=== PATIENT | female | born 1975 | race Caucasian/White ===

== ENCOUNTER 2016-07-30 11:10 | Emergency (ER) | payer OTHER ==
[~2016-07-30] VITALS: Ht 160 cm; Wt 54.4 kg
--- NOTE | 2016-07-30 11:19 | ED GI/GU/ABDOMINAL COMPLAINT ---
History of Present Illness General Chief Complaint: General Adult Stated Complaint: "PER PT FOOD POSIONING" Source: patient, family Exam Limitations: no limitations Vital Signs & Intake/Output Vital Signs & Intake/Output Vital Signs Date Time Temp Pulse Resp B/P B/P Pulse O2 O2 Flow FiO2 Mean Ox Delivery Rate 07/30 1300 97.3 88 18 128/74 94 Room Air 07/30 1136 98 Room Air 07/30 1113 97.5 92 16 95 Room Air Allergies Coded Allergies: No Known Allergies (07/30/16) Reconcile Medications Ondansetron (Zofran Odt) 4 MG TAB.RAPDIS 1 TAB SL TID NAUSEA Triage Note: 40 Y/O FEMALE C/O HEADACHE, N/V AND PHOTOPHOBIA X 2-3 HOURS. HAS NOT TAKEN ANY MEDS FOR SAME DUE TO VOMITING. Triage Nurses Notes Reviewed? yes ? N Is pt currently ? No Onset: Abrupt Duration: hour(s): (3) Timing: multiple episodes today Location: FRONTAL HEAD Radiation: OCCIPUT No Modifying Factors: none Associated Symptoms: nausea/vomiting HPI: This is a 4-year-old female who presents to the ER with chief complaint of sudden onset of headache 3 years ago. She states that she came home from work and was upset about something that happened at work. Then she began to have a headache. Pain is in the front of the head and radiates to the back. After that she started with nausea and vomiting multiple times. Emesis was bilious according to the significant other in the room. She denies any abdominal pain. No history of headaches or migraines in the past before denies any trauma. Denies any blurred vision. Past History Travel History Traveled to [place] past 21 day No Medical History Any Pertinent Medical History? see below for history Neurological: NONE EENT: NONE Cardiovascular: NONE Respiratory: NONE Gastrointestinal: NONE Hepatic: NONE Renal: NONE Musculoskeletal: NONE Psychiatric: NONE Endocrine: NONE Blood Disorders: NONE Cancer(s): NONE BULKER/Reproductive: NONE Surgical History Surgical History: non-contributory Psychosocial History What is your primary language Montenegrin Tobacco Use: Current Not Daily Family History Comment: NO FAMILY HISTORY OF MIGRAINE, CVA, ANEURYSMS Hx Contributory? No Review of Systems Review of Systems Constitutional: Denies: chills, fever. EENTM: Denies: double vision. Respiratory: Denies: cough, short of breath, sputum production. Cardiovascular: Denies: chest pain. GI: Reports: nausea, vomiting. Denies: abdominal pain, diarrhea. Genitourinary: Denies: discharge, dysuria. Musculoskeletal: Denies: back pain. Skin: Reports: no symptoms. Neurological/Psychological: Reports: anxiety, emotional problems, headache. Denies: confusion. Hematologic/Endocrine: Denies: bruising, bleeding, polyuria, polydipsia. Immunologic/Allergic: Denies: splenectomy. All Other Systems: Reviewed and Negative Physical Exam Physical Exam General Appearance: alert, awake, anxious, mild distress, moderate distress, thin Head: atraumatic, normal appearance Eyes: Bilateral: normal appearance, PERRL, EOMI. Ears, Nose, Throat, Mouth: hearing grossly normal, moist mucous membrane Neck: normal inspection, supple, full range of motion Respiratory: normal breath sounds, chest non-tender, no respiratory distress Cardiovascular: regular rate/rhythm Peripheral Pulses: 2+ radial (R), 2+ radial (L) Gastrointestinal: normal bowel sounds, soft, non-tender Back: normal inspection, normal range of motion Extremities: normal range of motion Neurologic/Psych: no motor/sensory deficits, awake, alert, oriented x 3 Core Measures ACS in differential dx? No Severe Sepsis Present: No Septic Shock Present: No Progress Differential Diagnosis: MIGRAINE, SUBARACHNOID BLEED, ANXIETY ATTACK Plan of Care: Orders Procedure Date/time Status Add-on Test (ER Only) 07/30 1225 Active LIPASE 07/30 1142 Complete URINE DRUGS OF ABUSE 07/30 1128 Active PARTIAL THROMBOPLASTIN TIME 07/30 1128 Complete PROTHROMBIN TIME 07/30 1128 Complete COMPREHENSIVE METABOLIC PANEL 07/30 1128 Complete CBC WITHOUT DIFFERENTIAL 07/30 1128 Complete Laboratory Tests 07/30/16 1142: Anion Gap 16, Estimated GFR > 60, BUN/Creatinine Ratio 46.0 H, Glucose 124 H, Calcium 10.1, Total Bilirubin 0.7, AST 39 H, ALT 73 H, Alkaline Phosphatase 93 , Total Protein 8.7 H, Albumin 5.4 H, Globulin 3.3, Albumin/Globulin Ratio 1.6 , Lipase 84, PT 13.0 H, INR 1.24 H, APTT 28, CBC w Diff NO MAN DIFF REQ, RBC 4.32, MCV 93.8, MCH 31.7 H, RDW 12.1, MPV 8.2, Gran % 86.6 H, Lymphocytes % 9.2 L, Monocytes % 3.6, Eosinophils % 0.2, Basophils % 0.4, Absolute Granulocytes 12.1 H, Absolute Lymphocytes 1.3, Absolute Monocytes 0.5, Absolute Eosinophils 0, Absolute Basophils 0, PUBS MCHC 33.8 ZOFRAN, IV TYLENOL, CT HEAD. NO IMPROVEMENT, MORPHINE ORDERED. CT RESULTS PENDING. 07/30/2016 12:04:[address] scan is negative. Patient states the pain is relieved but she still complains of nausea. I discussed this possibility of subarachnoid hemorrhage at this time she is refusing lumbar puncture. She states she thinks the headache is a reaction from being very upset at work this morning. 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 14:45 PATIENT NOW TOTALLY ASYMPTOMATIC. TOLERATING PO WITHOUT DIFFICULTY. WISHES TO GO HOME AT THIS TIME. WILL FOLLOW UP WITH PCP IN OFFICE. (AMANDA ALMENDAREZ,ANTONINO) Diagnostic Imaging: Viewed by Me: CT Scan. Discussed w/RAD: CT Scan. Radiology Impression: PATIENT: SHAHID BARRAZA PRESENT AGE: 40 PATIENT ACCOUNT NO: [id number] : 75 LOCATION: [facility] ORDERING PHYSICIAN: ANTONINO PATEL MD SERVICE DATE: 07/30/16 EXAM TYPE: CAT - CT HEAD WO IV CONTRAST EXAMINATION: CT HEAD WITHOUT CONTRAST CLINICAL INFORMATION: Sudden onset headache and vomiting. COMPARISON: None TECHNIQUE: Contiguous axial imaging was performed from the skull base to vertex without intravenous administration of contrast. DLP: 621 mGy-cm FINDINGS: There is no evidence of acute intracranial hemorrhage or territorial infarction. No abnormal mass effect or midline shift is seen. Armstrong to white matter differentiation is well preserved. No extra-axial fluid collections are identified. The ventricles are normal in size. There is no abnormal attenuation within the brain parenchyma. The osseous structures and soft tissues are normal. The mastoid air cells and visualized portions of the paranasal sinuses are well aerated. IMPRESSION: No acute intracranial pathology. DICTATED BY: ITALIA BEARDEN MD DATE/TIME DICTATED:07/30/161141 TANK WORKER:SANA DATE/TIME TRANSCRIBED:1141 CONFIDENTIAL, DO NOT COPY WITHOUT APPROPRIATE AUTHORIZATION. < Electronically signed in Other Vendor System> SIGNED BY: ITALIA BEARDEN MD 07/30/16 1149 Initial ED EKG: none Departure Departure Time of Disposition: 1445 Disposition: HOME OR SELF CARE Condition: Stable Clinical Impression Primary Impression: Headache Referrals: STACIA PATINO MD Additional Instructions: TAKE ORAL ZOFRAN NEEDED FOR NAUSEA MOTRIN OR TYLENOL NEEDED FOR PAIN Departure Forms: Customer Survey General Discharge Information Prescriptions: Current Visit Scripts Ondansetron (Zofran Odt) 1 TAB SL TID #10 TAB
--- NOTE | 2016-07-30 11:49 | CT SCAN REPORT ---
EXAMINATION: CT HEAD WITHOUT CONTRAST CLINICAL INFORMATION: Sudden onset headache and vomiting. COMPARISON: None TECHNIQUE: Contiguous axial imaging was performed from the skull base to vertex without intravenous administration of contrast. DLP: 621 mGy-cm FINDINGS: There is no evidence of acute intracranial hemorrhage or territorial infarction. No abnormal mass effect or midline shift is seen. Armstrong to white matter differentiation is well preserved. No extra-axial fluid collections are identified. The ventricles are normal in size. There is no abnormal attenuation within the brain parenchyma. The osseous structures and soft tissues are normal. The mastoid air cells and visualized portions of the paranasal sinuses are well aerated. IMPRESSION: No acute intracranial pathology.
[2016-07-30 11:54] LABS: ABSOLUTE BASOPHIL COUNT 0 /CUMM (0.0-0.2); ABSOLUTE EOSINOPHIL COUNT 0 /CUMM (0.0-0.7); ABSOLUTE GRANULOCYTE CT 12.1 /CUMM (1.4-6.5); ABSOLUTE LYMPH COUNT 1.3 /CUMM (1.2-3.4); ABSOLUTE MONOCYTE COUNT 0.5 /CUMM (0.10-0.60); BASOPHIL % 0.4 % (0.0-2.0); EOSINOPHIL % 0.2 % (0-5); HEMATOCRIT 40.6 % (37-47); MEAN CORPUSCULAR HGB 31.7 PG (27.0-31.0); MEAN CORPUSCULAR HGB CONC 33.8 G/DL (33.0-37.0); MEAN CORPUSCULAR VOLUME 93.8 FL (81.0-99.0); MEAN PLATELET VOLUME 8.2 FL (7.4-10.4); PLATELET COUNT 288 /CUMM (130-400); RBC DISTRIBUTION WIDTH 12.1 % (11.5-14.5); RED BLOOD CELL CT 4.32 /CUMM (4.20-5.40); WHITE BLOOD CELL COUNT 13.9 /CUMM (4.8-10.8)
[2016-07-30 12:14] LABS: PTT 28 SEC (25-37)
[2016-07-30 12:24] LABS: GRANULOCYTE % 86.6 % (42.2-75.2)
[2016-07-30 13:00] VITALS: BP 128/74
[2016-07-30] MEDS ORDERED: ZOFRAN ODT4 M1 SL (13:47)
== END 2016-07-30 14:49 ==
LOC: ERH 11:10
PROVIDERS: Emergency Medicine
DX: R51 Headache (principal)
CPT/HCPCS: 80307; 96374; 96375; J0131; J2405